=== PATIENT | male | born 1980 | race Caucasian/White ===

== ENCOUNTER 2021-12-21 22:43 | Emergency (ER) | payer OTHER ==
[~2021-12-21 22:43] MED LIST: LISINOPRIL 20MG20 MG PO; PROCTOZONE-HC 230 GM TOP
[2021-12-21] MEDS ORDERED: FLEXERIL5 MG PO (23:57)
== END 2021-12-22 00:14 | disposition home or self-care (01) ==
LOC: FER 22:43
DX: S13.4XXA Sprain of ligaments of cervical spine, initial encounter (principal); M25.511 Pain in right shoulder; I10 Essential (primary) hypertension; F17.200 Nicotine dependence, unspecified, uncomplicated; Z79.899 Other long term (current) drug therapy; V48.5XXA Car driver injured in noncollision transport accident in traffic accident, initial encounter; Z28.310 Unvaccinated for COVID-19
CPT/HCPCS: 72125; 73030; J1885